=== PATIENT | male | born 1985 | race Caucasian/White ===

== ENCOUNTER 2021-01-18 01:16 | Emergency (ER) | payer OTHER, SELFPAY ==
[2021-01-18 01:45] VITALS: BP 152/87; PULSE 100; RESP 22; TEMP 36.8; O2SAT 95; BMI 35.2
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
[2021-01-18] MEDS: Lidocaine HCl 1 % MPF 5 ML VIAL INFILTRATI (02:26)
== END 2021-01-18 02:56 | disposition home or self-care (01) ==
PROVIDERS: Emergency Provider Student in an Organized Health Care Education/Training Program; PCP Internal Medicine
DX: S61.011A Laceration without foreign body of right thumb without damage to nail, initial encounter (principal); S71.112A Laceration without foreign body, left thigh, initial encounter; S41.012A Laceration without foreign body of left shoulder, initial encounter; M79.641 Pain in right hand; M79.652 Pain in left thigh; M25.512 Pain in left shoulder; W26.0XXA Contact with knife, initial encounter; Y93.9 Activity, unspecified; Y92.9 Unspecified place or not applicable; Y99.9 Unspecified external cause status; Z79.899 Other long term (current) drug therapy
CPT/HCPCS: 12002; 90471; 90715; 99283; 99284

== ENCOUNTER 2021-02-03 19:28 | Emergency (ER) | payer OTHER, SELFPAY ==
[2021-02-03 19:36] VITALS: BP 161/96; BP 166/71; PULSE 100; PULSE 110; RESP 18; TEMP 36.6; O2SAT 96; O2SAT 98; BMI 37.3
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
[2021-02-03 20:00] LABS: Appearance Urine CLEAR; Color Urine YELLOW; Glucose Urine UA NEG (NEG); Leukocyte Esterase Urine NEG (NEG); Nitrite Urine NEG (NEG); PH 6.5 (5.0-8.0); Urine Blood NEG (NEG); Urine Ketones NEG (NEG); Urine Protein NEG (NEG-TRACE)
--- NOTE | 2021-02-03 20:03 | PC.NURSE ---
URINE SAMPLE TO LAB.
[2021-02-03 20:34] LABS: Amphetamine Screen Urine Not Detected (Not Detect); Benzodiazepines Screen Urine Not Detected (Not Detect); Cannabinoid Screen Urine Not Detected (Not Detect); Opiate Screen Urine POSITIVE (Not Detect); Phencyclidine Screen Urine Not Detected (Not Detect)
[2021-02-03 20:38] LABS: Barbiturates, Urine Not Detected (Not Detect); Cocaine Screen Urine POSITIVE (Not Detect)
--- NOTE | 2021-02-03 20:45 | PC.NURSE ---
pt resting in stetcher calm and cooperative. pt denies any complaints at this time.
--- NOTE | 2021-02-03 22:07 | ED.PSYCH ---
HPI - Psych General Chief Complaint: ETOH/Substance Use Stated Complaint: CRISIS Time Seen by Provider: 02/03/21 22:06 Source: patient Mode of arrival: EMS Limitations: no limitations History of Present Illness HPI Narrative: Patient with history of substance abuse brought by EMS for getting upset and punching windows in the kitchen patient is supposed to be on some medication but has not taken his medication for last 2 weeks on arrival patient been relaxed and sleeping most of the time urine is positive for opiates and cocaine Related Data Allergies Allergy/AdvReac Type Severity Reaction Status Date / Time No Known Allergies Allergy Verified 01/18/21 01:44 Review of Systems Review of Systems: Yes all other systems are reviewed and are negative [facility] Past Medical History Medical History (Updated 02/03/21 @ 22:20 by Melchor Barone MD) Substance abuse Surgical History History of surgery History of surgery on arm Social History Social History Advance Directives: No Advance Directives Information Provided: Yes Physical Exam Vital Signs: Vital Signs: Last Vital Signs Temp 97.8 F 02/03/21 19:36 Pulse 110 H 02/03/21 19:36 Resp 18 02/03/21 19:36 BP 161/96 H 02/03/21 19:36 Pulse Ox 96 02/03/21 19:36 Body Mass Index 37.3 Appearance: sleeping easily arousable. No acute distress. Eyes: Pupils equal, round and reactive to light. 2 mm both sides ENT: Pharynx normal. Neck: Normal inspection. Neck supple. CVS: Normal heart rate and rhythm. Pulses normal. Respiratory: No respiratory distress. Breath sounds normal. Abdomen: Soft and nontender. Bowel sounds are present, no mass palpable, no CVA tenderness Skin: Skin warm and dry. Normal skin color. Normal skin turgor. Extremities: No lower extremity edema. Abrasion in both dorsum of the hand Neuro: Oriented X 3. No motor deficit. No sensory deficit. Psych: Sleeping at this time was calm on arrival no suicidal homicidal feeling MDM - Psych MDM Narrative Medical decision making narrative: Patient slept all night found 10 bags of heroin with him a time of discharge patient feels better refused to get any help for substance abuse will discharge patient home Differential Diagnosis Differential diagnosis: Likely substance abuse Lab Data Attestation: I reviewed the patient's lab results. Labs: Lab Results 02/03/21 02/03/21 Range/Units 19:51 19:51 Urine Color YELLOW Urine Appearance CLEAR Urine pH 6.5 (5.0-8.0) Ur Specific [place] 1.020 (1.005-1.025) Urine Protein NEG (NEG-TRACE) MG/DL Urine Glucose (UA) NEG (NEG) MG/DL Urine Ketones NEG (NEG) MG/DL Urine Blood NEG (NEG) Urine Nitrite NEG (NEG) Ur Leukocyte Esterase NEG (NEG) Urine Opiates Screen POSITIVE H (Not Detect) Ur Barbiturates Screen Not Detected (Not Detect) Ur Phencyclidine Scrn Not Detected (Not Detect) Ur Amphetamines Screen Not Detected (Not Detect) U Benzodiazepines Scrn Not Detected (Not Detect) Urine Cocaine Screen POSITIVE H (Not Detect) U Marijuana (THC) Screen Not Detected (Not Detect)
--- NOTE | 2021-02-04 03:22 | PC.NURSE ---
PT SLEEPING, WAKES TO VERBAL STIMULI, RESPIRATIONS EASY N/L. SKIN W/D. WILL CONTINUE TO MONITOR PT.
--- NOTE | 2021-02-04 04:27 | PC.NURSE ---
PT SLEEPING, WAKES TO VERBAL STIMULI, RESPIRATIONS EASY, N/L. SKIN W/D.
--- NOTE | 2021-02-04 05:35 | PC.NURSE ---
PT WITH STEADY EVEN GAIT TO WR. PT GETTING DRESSED AT THIS TIME,
== END 2021-02-04 05:35 | disposition home or self-care (01) ==
PROVIDERS: Emergency Provider Internal Medicine
DX: F11.10 Opioid abuse, uncomplicated (principal); F14.10 Cocaine abuse, uncomplicated; S60.512A Abrasion of left hand, initial encounter; S60.511A Abrasion of right hand, initial encounter; W22.8XXA Striking against or struck by other objects, initial encounter; Y93.89 Activity, other specified; Y92.009 Unspecified place in unspecified non-institutional (private) residence as the place of occurrence of the external cause; Y99.9 Unspecified external cause status; Z91.14 Patient's other noncompliance with medication regimen
CPT/HCPCS: 80307; 81003; 99283